=== PATIENT | female | born 1970 | race Caucasian/White ===

== ENCOUNTER → 2019-08-28 | Outpatient (CLI) | payer OTHER | LOC: MAMMO 08:24 | DX: Z12.31 Encounter for screening mammogram for malignant neoplasm of breast (principal) ==

== ENCOUNTER 2022-01-07 11:03 | Outpatient (RCR) | payer BC | END 2022-01-11 | disposition still patient (30) | LOC: PT | DX: M25.512 Pain in left shoulder (principal) ==

== ENCOUNTER 2022-01-13 08:00 | Outpatient (RCR) | payer BC | END 2022-02-10 | disposition home or self-care (01) | LOC: PT | DX: M25.512 Pain in left shoulder (principal) ==

== ENCOUNTER → 2023-01-05 | Outpatient (CLI) | payer BC | LOC: MAMMO 13:06 | DX: Z12.31 Encounter for screening mammogram for malignant neoplasm of breast (principal) ==